=== PATIENT | male | born 1990 | race Caucasian/White ===

== ENCOUNTER 2022-02-18 07:03 | Emergency (ER) | payer OTHER ==
[~2022-02-18] VITALS: Ht 170.2 cm; Wt 90.7 kg
[2022-02-18] MEDS ORDERED: OLANZAPINE 10 MG VIAL IM ONE ×2 (07:15→07:47)
[2022-02-18 08:14] LABS: HEMATOCRIT 43.6 % (36.7-47.1); MEAN CORPUSCULAR HEMOGLOBIN 31.7 uug (23.8-33.4); MEAN CORPUSCULAR VOLUME 91.5 fL (73.0-96.2); PLATELET COUNT (AUTO) 79 K/uL (152-348)
[2022-02-18 08:30] LABS: CREATININE 0.9 mg/dL (0.6-1.3); POTASSIUM 3.2 mmol/L (3.5-5.1)
[2022-02-18 08:45] LABS: BILIRUBIN,TOTAL 1.2 mg/dL (0.2-1.0); TOTAL PROTEIN, SERUM 6.7 g/dL (6.4-8.2)
--- NOTE | 2022-02-18 09:15 | NUR ---
patient resting comfortably in bed, is asleep and monitor is on.
== END 2022-02-18 11:34 | disposition home or self-care (01) ==
LOC: ER 07:09
DX: R07.9 Chest pain, unspecified (principal); R79.89 Other specified abnormal findings of blood chemistry; F41.9 Anxiety disorder, unspecified; Z59.00 Homelessness unspecified; F10.20 Alcohol dependence, uncomplicated; Y90.6 Blood alcohol level of 120-199 mg/100 ml
CPT/HCPCS: 36415; 71045; 83690; 84484; 85025; 93005; A4663; G0480; J2358